=== PATIENT | female | born 1970 | race Caucasian/White ===

== ENCOUNTER → 2016-07-18 | Outpatient (CLI) | payer OTHER ==
--- NOTE | 2016-07-18 09:21 | MM ---
Reason for exam: additional evaluation requested from prior study. Last mammogram was performed 1 year and 1 month ago. History: Patient is nulliparous. Family history of breast cancer in mother at age 68. Taking hormonal contraceptives for 23 years beginning at age 21. Physical Findings: Nurse did not find any significant physical abnormalities on exam. MG 3D Diag Mammo W/Cad TESSA Bilateral CC and MLO view(s) were taken. LM and spot compression CC view(s) were taken of the right breast. Prior study comparison: June 08, 2015, bilateral MG 3d screening mammo w/cad. There are scattered fibroglandular densities. Asymmetric breast tissue upper central right breast improved after spot compression. These results were verbally communicated with the patient and result sheet given to the patient on 07/18/16. ASSESSMENT: Incomplete: need additional imaging evaluation, BI-RAD 0 RECOMMENDATION: Ultrasound of the left breast.
--- NOTE | 2016-07-18 09:28 | USB ---
Reason for exam: additional evaluation requested from abnormal screening. History: Patient is nulliparous. Family history of breast cancer in mother at age 68. Taking hormonal contraceptives for 23 years beginning at age 21. US Breast LT Left breast ultrasound including all four quadrants, the retroareolar region and axilla demonstrates a 0.7 x 0.4 x 0.8cm oval, cystic lesion at 6 o'clock, seen on previous and a 0.6 x 0.3 x 0.6cm oval, cystic lesion at 9 o'clock, seen on previous. These results were verbally communicated with the patient and result sheet given to the patient on 07/18/16. ASSESSMENT: Benign, BI-RAD 2 RECOMMENDATION: Follow-up diagnostic mammogram of both breasts in 6 months. (back on schedule left breast, 6 month follow up right breast)
== END | disposition home or self-care (01) ==
LOC: RADMAMWWP 07:17
PROVIDERS: ATTEND Obstetrics & Gynecology
DX: R92.8 Other abnormal and inconclusive findings on diagnostic imaging of breast (principal)
CPT/HCPCS: 76641; G0204; G0279

== ENCOUNTER → 2017-01-08 | Outpatient (CLI) | payer OTHER ==
--- NOTE | 2017-01-08 08:03 | US ---
EXAMINATION TYPE: US abdomen complete DATE OF EXAM: 01/08/2017 COMPARISON: NONE CLINICAL HISTORY: K21.9 Gerd R10.9 Abdominal Pain. GERD, epigastric pain, vomiting EXAM MEASUREMENTS: Liver Length: 15.4 cm Gallbladder Wall: 0.3 cm CBD: 0.3 cm Spleen: 10.1 cm Right Kidney: 10.2 x 4.1 x 4.4 cm Left Kidney: 10.7 x 5.2 x 4.8 cm *Technical limitations due to large amount of overlying bowel Pancreas: visualized portions appear wnl, tail obscured by overlying bowel content Liver: visualized portions appear wnl Gallbladder: Large shadowing gallstone is seen within the gallbladder fundus measuring 2.3cm Evidence for sonographic Palomares's sign: Yes CBD: appears wnl Spleen: appears wnl Right Kidney: no evidence of hydronephrosis or mass Left Kidney: no evidence of hydronephrosis or mass Upper IVC: wnl Abd Aorta: wnl The liver is homogenous. The intrahepatic portion of the IVC and proximal abdominal aorta are within normal limits. There is no evidence of cholelithiasis. Common bile duct is unremarkable. The visu alized portions of the pancreas are homogenous. The spleen is unremarkable. Kidneys are symmetric a nd free of hydronephrosis. No renal lesions are seen. IMPRESSION: Cholelithiasis without other sonographic evidence of cholecystitis. The superintendent pier notes a positive sonographic Palomares sign and therefore consideration should be given to HIDA scan with CCK to further evaluate for acute/chronic cholecystitis and/or biliary dyskinesia.
== END | disposition home or self-care (01) ==
LOC: RADUSWWP 06:56
PROVIDERS: ATTEND Family Medicine
DX: K80.20 Calculus of gallbladder without cholecystitis without obstruction (principal); K21.9 Gastro-esophageal reflux disease without esophagitis
CPT/HCPCS: 76700

== ENCOUNTER → 2017-01-19 | Outpatient (CLI) | payer OTHER ==
--- NOTE | 2017-01-19 09:02 | MM ---
Reason for exam: follow-up at short interval from prior study. Last mammogram was performed 6 months ago. History: Patient is nulliparous. Family history of breast cancer in mother at age 68. Taking hormonal contraceptives beginning at age 21. Physical Findings: Nurse did not find any significant physical abnormalities on exam. MG 3D Diag Mammo W/Cad TESSA Bilateral CC and MLO view(s) were taken. Prior study comparison: July 18, 2016, bilateral MG 3d diag mammo w/cad TESSA. June 16, 2015, left breast US breast workup limited LT. June 08, 2015, bilateral MG 3d screening mammo w/cad. There are scattered fibroglandular densities. Mammographically stable previously sonographically proven left cyst at 6 o'clock. Right asymmetry no longer seen, appears as fibroglandular tissue. These results were verbally communicated with the patient and result sheet given to the patient on 01/19/17. ASSESSMENT: Benign, BI-RAD 2 RECOMMENDATION: Routine screening mammogram of both breasts in 1 year.
== END | disposition home or self-care (01) ==
LOC: RADMAMWWP 07:32
PROVIDERS: ATTEND Obstetrics & Gynecology
DX: R92.8 Other abnormal and inconclusive findings on diagnostic imaging of breast (principal)
CPT/HCPCS: G0204; G0279

== ENCOUNTER → 2017-01-24 | Outpatient (CLI) | payer OTHER ==
--- NOTE | 2017-01-24 12:43 | XR ---
EXAMINATION TYPE: XR finger RT DATE OF EXAM: 01/24/2017 COMPARISON: NONE HISTORY: Right fourth digit pain after lifting injury 3 weeks ago. TECHNIQUE: 3 views of right fourth digit are acquired. FINDINGS: No acute fracture or dislocation is evident. The joint spaces are preserved. Overlying soft tissue is unremarkable. IMPRESSION: No acute fracture or dislocation in fourth digit of right hand is present.
== END | disposition home or self-care (01) ==
LOC: RADXRMAIN 12:02
PROVIDERS: ATTEND Family Medicine
DX: M79.644 Pain in right finger(s) (principal)

== ENCOUNTER → 2017-01-31 | Outpatient (CLI) | payer OTHER ==
--- NOTE | 2017-01-31 10:10 | NM ---
EXAMINATION TYPE: NM hepatobiliary w EF DATE OF EXAM: 01/31/2017 COMPARISON: NONE HISTORY: Gastroesophageal reflux disease, abdominal pain TECHNIQUE: After the intravenous administration of 5.44 mCi Tc 99m Mebrofenin hepatobiliary scintigra phy is performed. Immediate images post injection. FINDINGS: There is satisfactory initial accumulation of tracer by the liver. The gallbladder is visualized wit hin 22 minutes. The small bowel activity is noted within 16 minutes. At one hour 8 ounces of oral e nsure plus is given to mimic CCK and gallbladder ejection fraction is calculated at 56 %, in the norm al range. Therefore there is no scintigraphic evidence of cystic or common bile duct obstruction to suggest acute cholecystitis or gallbladder dyskinesia. IMPRESSION: Exam is within normal limits.
== END | disposition home or self-care (01) ==
LOC: RADNMMAIN 06:52
PROVIDERS: ATTEND Family Medicine
DX: K21.9 Gastro-esophageal reflux disease without esophagitis (principal)
CPT/HCPCS: 78226; A9537

== ENCOUNTER 2018-04-14 17:29 | Emergency (ER) | payer OTHER ==
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
[2018-04-14 18:57] LABS: Basophils % (A) 0 %; Eosinophils # (A) 0.1 k/uL (0-0.7); Eosinophils % (A) 1 %; HCT 41.8 % (34.0-46.0); HGB 13.3 gm/dL (11.4-16.0); Lymphocytes # (A) 1.6 k/uL (1.0-4.8); Lymphocytes % (A) 13 %; MCH 29.9 pg (25.0-35.0); MCHC 31.9 g/dL (31.0-37.0); MCV 93.8 fL (80.0-100.0); Mean Platelet Volume 6.9; Monocytes # (A) 0.6 k/uL (0-1.0); Monocytes % (A) 5 %; Neutrophils # (A) 9.3 k/uL (1.3-7.7); Neutrophils % (A) 79 %; Platelet Count 386 k/uL (150-450); RBC 4.46 m/uL (3.80-5.40); RDW 12.8 % (11.5-15.5); WBC 11.8 k/uL (3.8-10.6)
[2018-04-14 19:06] LABS: Creatine Kinase 78 U/L (30-135)
[2018-04-14 19:09] LABS: ALT 21 U/L (9-52); AST 21 U/L (14-36); Albumin 3.9 g/dL (3.5-5.0); Alcohol <10 mg/dL; Alkaline Phosphatase 70 U/L (38-126); Anion Gap 10 mmol/L; Blood Urea Nitrogen 17 mg/dL (7-17); Calcium 9.4 mg/dL (8.4-10.2); Carbon Dioxide 22 mmol/L (22-30); Chloride 109 mmol/L (98-107); Glucose 119 mg/dL (74-99); Potassium 4.5 mmol/L (3.5-5.1); Sodium 141 mmol/L (137-145); Total Bilirubin 0.3 mg/dL (0.2-1.3); Total Protein 6.9 g/dL (6.3-8.2)
[2018-04-14 19:18] LABS: Creatine Kinase MB 0.8 ng/mL (0.0-2.4); Troponin I <0.012 ng/mL (0.000-0.034)
[2018-04-14 19:19] LABS: Prothrombin Time 9.5 sec (9.0-12.0)
[2018-04-14 19:28] LABS: Partial Thromboplastin Time 18.5 sec (22.0-30.0)
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
[2018-04-14 19:53] VITALS: BP 140/88; PULSE 90; RESP 18; TEMP 98.4
--- NOTE | 2018-04-19 00:29 | CDI ---
Documentation Clarification OP Dear Shashank Mari, DO Please do addendum to ED report for complete Physical Exam. Thank you, Caron Braun Paper Control Clerk If you have any questions, please contact Integration Project Manager at [phone] [facility]
== END 2018-04-14 19:52 | disposition home or self-care (01) ==
LOC: EC 17:29
DX: M54.5 Low back pain (principal); M25.561 Pain in right knee; J45.909 Unspecified asthma, uncomplicated; K21.9 Gastro-esophageal reflux disease without esophagitis; E78.5 Hyperlipidemia, unspecified; Z98.890 Other specified postprocedural states; Z79.899 Other long term (current) drug therapy; Z88.2 Allergy status to sulfonamides; V43.62XA Car passenger injured in collision with other type car in traffic accident, initial encounter; Y92.89 Other specified places as the place of occurrence of the external cause
CPT/HCPCS: 36415; 93005; 80053; 82550; 82553; 84484; 85025; 85610; 85730; 80320; 73562; 72125; 70450; 71260; 74177; 99285; Q9967

== ENCOUNTER → 2019-03-21 | Outpatient (CLI) | payer OTHER ==
--- NOTE | 2019-03-24 10:06 | MM ---
Reason for exam: screening (asymptomatic). Last mammogram was performed 2 years and 2 months ago. History: Patient is nulliparous. Family history of breast cancer in mother at age 68. Taking hormonal contraceptives beginning at age 21. Physical Findings: A clinical breast exam by your physician is recommended on an annual basis and results should be correlated with mammographic findings. MG 3D Screening Mammo W/Cad Bilateral CC and MLO view(s) were taken. Prior study comparison: January 19, 2017, bilateral MG 3d diag mammo w/cad TESSA. July 18, 2016, bilateral MG 3d diag mammo w/cad TESSA. There are scattered fibroglandular densities. There is chronic nodularity bilaterally. No significant changes when compared with prior studies. ASSESSMENT: Benign, BI-RAD 2 RECOMMENDATION: Routine screening mammogram of both breasts in 1 year.
== END | disposition home or self-care (01) ==
LOC: RADMAMWWP 13:03
PROVIDERS: ATTEND Obstetrics & Gynecology
DX: Z12.31 Encounter for screening mammogram for malignant neoplasm of breast (principal)
CPT/HCPCS: 77063; 77067

== ENCOUNTER → 2021-02-15 | Outpatient (CLI) | payer OTHER ==
--- NOTE | 2021-02-15 12:07 | MM ---
Reason for exam: screening (asymptomatic). Last mammogram was performed 1 year and 11 months ago. History: Patient is nulliparous. Family history of breast cancer in mother at age 68. Taking hormonal contraceptives beginning at age 21. Physical Findings: A clinical breast exam by your physician is recommended on an annual basis and results should be correlated with mammographic findings. MG 3D Screening Mammo W/Cad Bilateral CC and MLO view(s) were taken. Prior study comparison: March 21, 2019, bilateral MG 3d screening mammo w/cad. July 18, 2016, bilateral MG 3d diag mammo w/cad TESSA. There are scattered fibroglandular densities. There is chronic nodularity in the left breast. There is no discrete abnormality. ASSESSMENT: Benign, BI-RAD 2 RECOMMENDATION: Routine screening mammogram of both breasts in 1 year.
== END | disposition home or self-care (01) ==
LOC: RADMAMWWP 07:06
PROVIDERS: ATTEND Obstetrics & Gynecology
DX: Z12.31 Encounter for screening mammogram for malignant neoplasm of breast (principal); Z80.3 Family history of malignant neoplasm of breast
CPT/HCPCS: 77063; 77067

== ENCOUNTER 2021-04-04 19:52 | Observation (INO) | payer OTHER ==
[2021-04-04 20:50] LABS: Basophils % (A) 0 %; Eosinophils # (A) 0.1 k/uL (0-0.7); Eosinophils % (A) 1 %; HCT 46.3 % (34.0-46.0); HGB 15.3 gm/dL (11.4-16.0); Lymphocytes # (A) 1.9 k/uL (1.0-4.8); Lymphocytes % (A) 13 %; MCH 30.4 pg (25.0-35.0); MCV 92.1 fL (80.0-100.0); Mean Platelet Volume 7.3; Monocytes # (A) 0.5 k/uL (0-1.0); Monocytes % (A) 4 %; Neutrophils # (A) 11.8 k/uL (1.3-7.7); Neutrophils % (A) 81 %; Platelet Count 448 k/uL (150-450); RBC 5.03 m/uL (3.80-5.40); RDW 12.5 % (11.5-15.5); WBC 14.4 k/uL (3.8-10.6)
[2021-04-04 21:22] LABS: ALT 13 U/L (4-34); AST 24 U/L (14-36); African American GFR (CKD) >90 (>60 ml/min/1.73 sqM); Albumin 4.6 g/dL (3.5-5.0); Alkaline Phosphatase 113 U/L (38-126); Anion Gap 11 mmol/L; Blood Urea Nitrogen 10 mg/dL (7-17); Calcium 10.1 mg/dL (8.4-10.2); Carbon Dioxide 23 mmol/L (22-30); Chloride 102 mmol/L (98-107); Glucose 108 mg/dL (74-99); Non-African American GFR(CKD) >90 (>60 ml/min/1.73 sqM); Potassium 4.3 mmol/L (3.5-5.1); Sodium 136 mmol/L (137-145); Total Bilirubin 0.7 mg/dL (0.2-1.3); Total Protein 8.2 g/dL (6.3-8.2)
[2021-04-05] MEDS ORDERED: HYDROmorphone 0.5 MG/0.5 ML SYRINGE IVP STA ×2 (01:11→03:35)
[2021-04-05] MEDS ORDERED: ONDANSETRON 4 MG/2 ML VIAL IVP STA (01:11)
[2021-04-05 02:20] LABS: Appearance,Urine Cloudy (Clear); Bacteria,Urine Many /hpf; Bilirubin,Urine Negative (Negative); Blood,Urine Small (Negative); Color,Urine Yellow; Glucose,Urine (UA) Negative (Negative); Ketones,Urine 4+ (Negative); Leukocyte Esterase,Urine Moderate (Negative); Mucus,Urine Many /hpf; Nitrite,Urine Negative (Negative); PH, Urine 5.5 (5.0-8.0); Protein,Urine 1+ (Negative); RBC,Urine 6 /hpf (0-5); Specific Gravity,Urine 1.028 (1.001-1.035); Squamous Epithelial Cell,Urine 7 /hpf (0-4); WBC,Urine 15 /hpf (0-5)
[2021-04-05 02:22] LABS: Amylase 67 U/L (30-110); Lipase 67 U/L (23-300)
--- NOTE | 2021-04-05 02:27 | US ---
EXAMINATION TYPE: US gallbladder DATE OF EXAM: 04/05/2021 COMPARISON: US, CT CLINICAL HISTORY: pain. Abdominal pain. Hx gallstone. EXAM MEASUREMENTS: Liver Length: 15.6 cm Gallbladder Wall: 0.39 cm CBD: 0.76 cm Right Kidney: 11.4 x 4.9 x 4.8 cm Limited due to patient body habitus and overlying bowel gas. Pancreas: Tail not well seen due to gas. Liver: Limited. Appears coarse and to have an increased echogenicity. Gallbladder: Appears to be distended at 12.0 cm in length with internal echoes. Hyperechoic area in neck: 2.3 x 2.1 x 2.9 cm. Wall appears thickened measuring 0.39 cm. Evidence for sonographic Palomares's sign: Yes CBD: Appears dilated. Right Kidney: No hydronephrosis or masses seen IMPRESSION: Increased echogenicity throughout the gallbladder. There is large gallstones at the gallbladder neck. Echogenic bile could relate to gallbladder sludge. Gallbladder mass cannot be excluded. Fatty infiltration of the liver. No dilation seen of the intrahepatic bile ducts.
--- NOTE | 2021-04-05 02:50 | ED ---
General Adult HPI - General Chief complaint: Abdominal Pain Stated complaint: Abd Pain,Fever Time Seen by Provider: 04/05/21 00:19 Source: patient Mode of arrival: ambulatory Limitations: no limitations - History of Present Illness Initial comments: 50-year-old female with a past medical history of asthma, GERD, hyperlipidemia, cholelithiasis presents to the emergency room for upper abdominal pain. This is been ongoing 2 or 3 days now. Patient states it started as a dull pain but gradually worsened. Patient states she has not been able to eat or drink anything because the pain worsens with eating and drinking. Patient is also nauseous and does not have an appetite. No fevers at home. Patient states she was told she has gallstones in the past.Patient has no other complaints at this time including shortness of breath, chest pain, nausea or vomiting, headache, or visual changes. - Related Data Home Medications Medication Instructions Recorded Confirmed [id number] 1 tab PO Q8H PRN 04/14/18 04/14/18 [Excedrin] Flovent (Unknown) 1 inhalation PO DIRECTED PRN 04/14/18 04/14/18 Montelukast [Singulair] 10 mg PO DAILY 04/14/18 04/14/18 Simvastatin [Zocor] 40 mg PO HS 04/14/18 04/14/18 Allergies Allergy/AdvReac Type Severity Reaction Status Date / Time Sulfa (Sulfonamide AdvReac Rash/Hives Verified 04/04/21 20:35 Antibiotics) Review of Systems ROS Statement: Those systems with pertinent positive or pertinent negative responses have been documented in the HPI. ROS Other: All systems not noted in ROS Statement are negative. Past Medical History Past Medical History: Asthma, GERD/Reflux, Hyperlipidemia Additional Past Medical History / Comment(s): gallstones History of Any Multi-Drug Resistant Organisms: None Reported Additional Past Surgical History / Comment(s): sinus surgeries Past Psychological History: No Psychological Hx Reported Smoking Status: Never smoker Past Alcohol Use History: Occasional Past Drug Use History: None Reported General Exam Limitations: no limitations General appearance: alert, in no apparent distress Head exam: Present: atraumatic Eye exam: Present: normal appearance, PERRL, EOMI. Absent: scleral icterus, conjunctival injection ENT exam: Present: normal exam, mucous membranes moist Neck exam: Present: normal inspection, full ROM. Absent: tenderness Respiratory exam: Present: normal lung sounds bilaterally. Absent: respiratory distress, wheezes Cardiovascular Exam: Present: regular rate, normal rhythm, normal heart sounds GI/Abdominal exam: Present: soft, tenderness (Mild upper abdominal tenderness. No lower abdominal tenderness. No tenderness at McBurney's point), normal bowel sounds. Absent: distended Neurological exam: Present: alert Course Vital Signs 04/04/21 20:31 Temperature 98.1 F Pulse Rate 69 Respiratory 18 Rate Blood Pressure 162/100 O2 Sat by Pulse 100 Oximetry EKG Findings - EKG Comments: EKG Findings:: These bradycardia, ventricular rate 56, DC interval 130, QTC 422 Medical Decision Making - Medical Decision Making Vitals are stable. HPI and physical exam as documented. CBC does show leukocytosis. CMP unremarkable. Urinalysis shows 4+ ketones. A gallbladder ultrasound does show gallstones in the gallbladder neck as well as a thickened wall, cannot exclude gallbladder mass. Possibly slightly dilated common bile duct however no transaminitis. Discussed this case with Dr. Cardenas. He does accept the admission. Patient was started on Unasyn and will be kept nothing by mouth. - Lab Data Result diagrams: 04/04/21 20:37 04/04/21 20:37 Lab Results 04/04/21 04/04/21 04/05/21 Range/Units 20:37 20:37 01:35 WBC 14.4 H (3.8-10.6) k/uL RBC 5.03 (3.80-5.40) m/uL Hgb 15.3 (11.4-16.0) gm/dL Hct 46.3 H (34.0-46.0) % MCV 92.1 (80.0-100.0) fL MCH 30.4 (25.0-35.0) pg MCHC 33.0 (31.0-37.0) g/dL RDW 12.5 (11.5-15.5) % Plt Count 448 (150-450) k/uL MPV 7.3 Neutrophils % 81 % Lymphocytes % 13 % Monocytes % 4 % Eosinophils % 1 % Basophils % 0 % Neutrophils # 11.8 H (1.3-7.7) k/uL Lymphocytes # 1.9 (1.0-4.8) k/uL Monocytes # 0.5 (0-1.0) k/uL Eosinophils # 0.1 (0-0.7) k/uL Basophils # 0.0 (0-0.2) k/uL Sodium 136 L (137-145) mmol/L Potassium 4.3 (3.5-5.1) mmol/L Chloride 102 (98-107) mmol/L Carbon Dioxide 23 (22-30) mmol/L Anion Gap 11 mmol/L BUN 10 (7-17) mg/dL Creatinine 0.72 (0.52-1.04) mg/dL Est GFR (CKD-EPI)AfAm >90 (>60 ml/min/1.73 sqM) Est GFR (CKD-EPI)NonAf >90 (>60 ml/min/1.73 sqM) Glucose 108 H (74-99) mg/dL Calcium 10.1 (8.4-10.2) mg/dL Total Bilirubin 0.7 (0.2-1.3) mg/dL AST 24 (14-36) U/L ALT 13 (4-34) U/L Alkaline Phosphatase 113 (38-126) U/L Troponin I (0.000-0.034) ng/mL Total Protein 8.2 (6.3-8.2) g/dL Albumin 4.6 (3.5-5.0) g/dL Amylase 67 (30-110) U/L Lipase 67 (23-300) U/L Urine Color Urine Appearance (Clear) Urine pH (5.0-8.0) Ur Specific [place] (1.001-1.035) Urine Protein (Negative) Urine Glucose (UA) (Negative) Urine Ketones (Negative) Urine Blood (Negative) Urine Nitrite (Negative) Urine Bilirubin (Negative) Urine Urobilinogen (<2.0) mg/dL Ur Leukocyte Esterase (Negative) Urine RBC (0-5) /hpf Urine WBC (0-5) /hpf Ur Squamous Epith Cells (0-4) /hpf Urine Bacteria (None) /hpf Urine Mucus (None) /hpf 04/05/21 04/05/21 Range/Units 01:35 01:39 WBC (3.8-10.6) k/uL RBC (3.80-5.40) m/uL Hgb (11.4-16.0) gm/dL Hct (34.0-46.0) % MCV (80.0-100.0) fL MCH (25.0-35.0) pg MCHC (31.0-37.0) g/dL RDW (11.5-15.5) % Plt Count (150-450) k/uL MPV Neutrophils % % Lymphocytes % % Monocytes % % Eosinophils % % Basophils % % Neutrophils # (1.3-7.7) k/uL Lymphocytes # (1.0-4.8) k/uL Monocytes # (0-1.0) k/uL Eosinophils # (0-0.7) k/uL Basophils # (0-0.2) k/uL Sodium (137-145) mmol/L Potassium (3.5-5.1) mmol/L Chloride (98-107) mmol/L Carbon Dioxide (22-30) mmol/L Anion Gap mmol/L BUN (7-17) mg/dL Creatinine (0.52-1.04) mg/dL Est GFR (CKD-EPI)AfAm (>60 ml/min/1.73 sqM) Est GFR (CKD-EPI)NonAf (>60 ml/min/1.73 sqM) Glucose (74-99) mg/dL Calcium (8.4-10.2) mg/dL Total Bilirubin (0.2-1.3) mg/dL AST (14-36) U/L ALT (4-34) U/L Alkaline Phosphatase (38-126) U/L Troponin I <0.012 (0.000-0.034) ng/mL Total Protein (6.3-8.2) g/dL Albumin (3.5-5.0) g/dL Amylase (30-110) U/L Lipase (23-300) U/L Urine Color Yellow Urine Appearance Cloudy H (Clear) Urine pH 5.5 (5.0-8.0) Ur Specific [place] 1.028 (1.001-1.035) Urine Protein 1+ H (Negative) Urine Glucose (UA) Negative (Negative) Urine Ketones 4+ H (Negative) Urine Blood Small H (Negative) Urine Nitrite Negative (Negative) Urine Bilirubin Negative (Negative) Urine Urobilinogen 2.0 (<2.0) mg/dL Ur Leukocyte Esterase Moderate H (Negative) Urine RBC 6 H (0-5) /hpf Urine WBC 15 H (0-5) /hpf Ur Squamous Epith Cells 7 H (0-4) /hpf Urine Bacteria Many H (None) /hpf Urine Mucus Many H (None) /hpf Disposition Clinical Impression: Cholelithiases, Cholecystitis, Leukocytosis Disposition: ADMITTED IP TO THIS HOSP Is patient prescribed a controlled substance at d/c from ED?: No Referrals: Jeovany Viera DO [Primary Care Provider] - 1-2 days Time of Disposition: 03:40
[2021-04-05] MEDS ORDERED: NALOXONE 0.4 MG/ML 1 ML VIAL IV PRN (03:37)
[2021-04-05] MEDS ORDERED: AMPICILLIN-SULBACTAM 3 GM in SODIUM CHLORIDE 0.9% 100 ML IVPB STA (03:37)
[2021-04-05] MEDS ORDERED: ONDANSETRON 4 MG/2 ML VIAL IVP PRN (03:37)
[2021-04-05] MEDS: SODIUM CHLORIDE 0.9% 1,000 ML IV SCH ×3 (04:55→19:39)
[2021-04-05] MEDS: HYDROmorphone 0.5 MG/0.5 ML SYRINGE IVP PRN ×5 (07:05→20:24)
[2021-04-05] MEDS ORDERED: HYDROmorphone 1 MG/ML 1 ML SYRINGE IVP PRN ×2 (09:39→17:48)
--- NOTE | 2021-04-05 10:22 | P.GSHP ---
History of Present Illness H&P Date: 04/05/21 CHIEF COMPLAINT: Abdominal pain HISTORY OF PRESENT ILLNESS: This is a 50-year-old female with a known history of cholelithiasis. Patient presents to the hospital with complaints of epigastric pain that radiates to her back and left shoulder with nausea and vomiting 4 days. She does report that pain is worse after eating. She has been having low-grade fevers. She had similar symptoms a few months ago that only last for an hour and resolve on their own. She reports that her pain was very severe and was continuous. Patient admitted to the hospital with acute cholecystitis and cholelithiasis. PAST MEDICAL HISTORY: Asthma, cholelithiasis, GERD, hyperlipidemia PAST SURGICAL HISTORY: None MEDICATIONS: See list. ALLERGIES: See list. SOCIAL HISTORY: No illicit drug use. REVIEW OF SYSTEMS: CONSTITUTIONAL: Denies fever or chills. HEENT: Denies blurred vision, vision changes, or eye pain. Denies hemoptysis CARDIOVASCULAR: Denies chest pain or pressure. RESPIRATORY: No shortness of breath. GASTROINTESTINAL: See HPI for pertinent findings HEMATOLOGIC: Denies bleeding disorders. GENITOURINARY: Denies any blood in urine or increased urinary frequency. SKIN: Denies pruitis. Denies rash. PHYSICAL EXAM: VITAL SIGNS: Reviewed GENERAL: Well-developed in no acute distress. HEENT: No sclera icterus. Extraocular movements grossly intact. Moist buccal mucosa. Head is atraumatic, normocephalic. No nasal drainage. ABDOMEN: Soft. Nondistended. Epigastric tenderness NEUROLOGIC: Alert and oriented. Cranial nerves II through XII grossly intact. LABORATORY DATA: WBC 14.4 hemoglobin 15.3 platelets 448 Sodium 136 potassium 4.3 BUN 10 creatinine 0.72 Lactic acid 1.2 LFTs normal Lipase normal Urine hCG not detected COVID-19 not detected IMAGING: Gallbladder ultrasound shows increased echogenicity throughout the gallbladder. There is large and gallstones at the gallbladder neck. Echogenic bile could relate to gallbladder sludge. Gallbladder mass cannot be excluded. Fatty infiltration of the liver. No dilation seen of the intrahepatic bile ducts. ASSESSMENT: 1. Acute cholecystitis 2. Symptomatic cholelithiasis PLAN: -Patient scheduled for laparoscopic cholecystectomy today with Dr. Cardenas -Keep patient nothing by mouth -Continue IV fluids -Adjust IV pain medication to Dilaudid 1 mg IV every 3 hours as needed for pain -Continue IV antibiotics -Continue antiemetics as needed Physician Dock Attendant note has been reviewed by physician. Signing provider agrees with the documented findings, assessment, and plan of care. Past Medical History Past Medical History: Asthma, GERD/Reflux, Hyperlipidemia Additional Past Medical History / Comment(s): gallstones History of Any Multi-Drug Resistant Organisms: None Reported Additional Past Surgical History / Comment(s): sinus surgeries Past Psychological History: No Psychological Hx Reported Smoking Status: Never smoker Past Alcohol Use History: Occasional Past Drug Use History: None Reported Medications and Allergies Home Medications Medication Instructions Recorded Confirmed Type Montelukast [Singulair] 10 mg PO HS 04/14/18 04/05/21 History Amitriptyline HCl [Elavil] 20 mg PO HS PRN 04/05/21 04/05/21 History Atorvastatin Calcium [Lipitor] 80 mg PO QAM 04/05/21 04/05/21 History Esomeprazole Magnesium [NexIUM 20 mg PO DAILY 04/05/21 04/05/21 History 24Hr] Fluticasone Nasal [place] [Flonase 1 - 2 spray EA NOSTRIL DAILY PRN 04/05/21 04/05/21 History Nasal [place]] Levocetirizine Dihydrochloride 5 mg PO HS 04/05/21 04/05/21 History [Xyzal] Levono-E 1 tab PO DAILY 04/05/21 04/05/21 History Allergies Allergy/AdvReac Type Severity Reaction Status Date / Time Sulfa (Sulfonamide Allergy Rash/Hives Verified 04/05/21 07:05 Antibiotics) Surgical - Exam Vital Signs Temp Pulse Resp BP Pulse Ox 98.1 F 69 18 162/100 100 04/04/21 20:31 04/04/21 20:31 04/04/21 20:31 04/04/21 20:31 04/04/21 20:31 Results - Labs 04/04/21 20:37 04/04/21 20:37 Abnormal Lab Results - Last 24 Hours (Table) 04/04/21 04/04/21 04/05/21 Range/Units 20:37 20:37 01:39 WBC 14.4 H (3.8-10.6) k/uL Hct 46.3 H (34.0-46.0) % Neutrophils # 11.8 H (1.3-7.7) k/uL Sodium 136 L (137-145) mmol/L Glucose 108 H (74-99) mg/dL Urine Appearance Cloudy H (Clear) Urine Protein 1+ H (Negative) Urine Ketones 4+ H (Negative) Urine Blood Small H (Negative) Ur Leukocyte Esterase Moderate H (Negative) Urine RBC 6 H (0-5) /hpf Urine WBC 15 H (0-5) /hpf Ur Squamous Epith Cells 7 H (0-4) /hpf Urine Bacteria Many H (None) /hpf Urine Mucus Many H (None) /hpf Diabetes panel 04/04/21 Range/Units 20:37 Sodium 136 L (137-145) mmol/L Potassium 4.3 (3.5-5.1) mmol/L Chloride 102 (98-107) mmol/L Carbon Dioxide 23 (22-30) mmol/L BUN 10 (7-17) mg/dL Creatinine 0.72 (0.52-1.04) mg/dL Glucose 108 H (74-99) mg/dL Calcium 10.1 (8.4-10.2) mg/dL AST 24 (14-36) U/L ALT 13 (4-34) U/L Alkaline Phosphatase 113 (38-126) U/L Total Protein 8.2 (6.3-8.2) g/dL Albumin 4.6 (3.5-5.0) g/dL Calcium panel 04/04/21 Range/Units 20:37 Calcium 10.1 (8.4-10.2) mg/dL Albumin 4.6 (3.5-5.0) g/dL Pituitary panel 04/04/21 Range/Units 20:37 Sodium 136 L (137-145) mmol/L Potassium 4.3 (3.5-5.1) mmol/L Chloride 102 (98-107) mmol/L Carbon Dioxide 23 (22-30) mmol/L BUN 10 (7-17) mg/dL Creatinine 0.72 (0.52-1.04) mg/dL Glucose 108 H (74-99) mg/dL Calcium 10.1 (8.4-10.2) mg/dL Adrenal panel 04/04/21 Range/Units 20:37 Sodium 136 L (137-145) mmol/L Potassium 4.3 (3.5-5.1) mmol/L Chloride 102 (98-107) mmol/L Carbon Dioxide 23 (22-30) mmol/L BUN 10 (7-17) mg/dL Creatinine 0.72 (0.52-1.04) mg/dL Glucose 108 H (74-99) mg/dL Calcium 10.1 (8.4-10.2) mg/dL Total Bilirubin 0.7 (0.2-1.3) mg/dL AST 24 (14-36) U/L ALT 13 (4-34) U/L Alkaline Phosphatase 113 (38-126) U/L Total Protein 8.2 (6.3-8.2) g/dL Albumin 4.6 (3.5-5.0) g/dL
[2021-04-05] MEDS: AMPICILLIN-SULBACTAM 3 GM in SODIUM CHLORIDE 0.9% 100 ML IVPB SCH ×3 (11:20→23:05)
[2021-04-05] MEDS ORDERED: IV FLUID CONTINUATION 300 ML IV ONE (16:19)
[2021-04-05] MEDS ORDERED: DEXAMETHASONE SOD PHOSPHATE 4 MG/ML 1 ML VIAL IVP ONE (16:21)
[2021-04-05] MEDS ORDERED: SCOPOLAMINE 1.5MG/72HR PATCH TRANSDERM ONE (16:21)
[2021-04-05] MEDS ORDERED: ONDANSETRON 4 MG/2 ML VIAL IVP ONE (16:21)
[2021-04-05] MEDS ORDERED: HEPARIN SODIUM,PORCINE/PF 5,000 UNIT/0.5 ML SYRINGE SQ ONE (16:25)
[2021-04-05] MEDS ORDERED: ONDANSETRON 4 MG/2 ML VIAL ONE (16:25)
[2021-04-05] MEDS ORDERED: HEPARIN SODIUM,PORCINE 5,000 UNIT/ML 1 ML VIAL SQ ONE (16:28)
[2021-04-05] MEDS ORDERED: fentaNYL (PF) 50 MCG/ML 2 ML AMP IVP ONE (16:39)
[2021-04-05] MEDS ORDERED: PROPOFOL 10 MG/ML 20 ML VIAL IV ONE (16:47)
[2021-04-05] MEDS ORDERED: NEOSTIGMINE 1 MG/ML 10 ML VIAL ONE (16:47)
[2021-04-05] MEDS ORDERED: LIDOCAINE 1% INJ 10MG/ML (20 ML MDV) ONE (16:47)
[2021-04-05] MEDS ORDERED: MIDAZOLAM 2 MG/2 ML VIAL ONE (16:47)
[2021-04-05] MEDS ORDERED: SUCCINYLCHOLINE CHLORIDE 100 MG/5 ML SYR IV ONE (16:47)
[2021-04-05] MEDS ORDERED: PHENYLEPHRINE-0.9% NACL SYG 1,000 MCG/10 ML SYRINGE ONE (16:47)
[2021-04-05] MEDS ORDERED: GLYCOPYRROLATE 0.2 MG/ML 2 ML VIAL ONE (16:47)
[2021-04-05] MEDS ORDERED: ROCURONIUM 10 MG/ML (5 ML VIAL) IV ONE (16:47)
[2021-04-05] MEDS ORDERED: HYDROmorphone (PF) 1 MG/ML ONE (16:47)
[2021-04-05] MEDS ORDERED: fentaNYL (PF) 50 MCG/ML 2 ML AMP ONE (16:47)
[2021-04-05] MEDS ORDERED: BUPIVACAIN-EPI 0.25%-1:200,000 30 ML VIAL SQ ONE ×2 (16:59→17:11)
[2021-04-05] MEDS ORDERED: LACTATED RINGERS 1,000 ML IV ONE (17:21)
--- NOTE | 2021-04-05 17:48 | P.OP ---
Date of Procedure: 04/05/21 Preoperative Diagnosis: Cholecystitis Postoperative Diagnosis: Cholecystitis Procedure(s) Performed: Laparoscopic cholecystectomy Anesthesia: CALEB Surgeon: Richmond Cardenas Estimated Blood Loss (ml): 25 Pathology: other (Gallbladder) Condition: stable Disposition: PACU Operative Findings: Gallbladder necrosis Description of Procedure: The patient was placed on the operating table. The patient received a general endotracheal tube anesthesia. The patients abdomen was prepped and draped in the usual sterile fashion. Through an infraumbilical stab incision, the fascia of the anterior abdominal wall was grasped with a pair of Kochers and then the Veress needle was placed in the peritoneal cavity. Position of the Veress needle was confirmed with positive drop test. The abdomen was then insufflated. After adequate insufflation, the 10 mm trocar was placed in the peritoneal cavity. Following this the laparoscope was placed in the peritoneal cavity. The patient was placed in the head-up, right side up position and then a 5 mm trocar was placed in the right lateral and right subcostal position under direct visualization. A 8 mm trocar was placed in the epigastric position. There was patchy necrosis of the gallbladder. The gallbladder was hydropic. The gallbladder was aspirated prior to grasping it. The gallbladder was grasped in the fundus and infundibulum. Traction on the gallbladder was placed in the lateral and the cephalad positions. The triangle of Calot was visualized.. The cystic duct was bluntly dissected until the union of the cystic duct and common bile duct was seen. A critical view of saf ety was achieved. The cystic duct was then divided and sealed with the Harmonic scissors. A PDS Endoloop was then placed throughout the cystic duct stump. The cystic artery divided and sealed with the Harmonic scissors. The gallbladder was then removed from the liver bed using Harmonic scissors. The gallbladder was then extracted through the epigastric port site. Operative field was checke d for any bleeding spots and Harmonic scissors was used to coagulate the liver bed. The abdomen was irrigated. The trocars were removed. The skin was closed using interrupted 3-0 Vicryl suture. Dermabond dressing were applied. The patient tolerated the procedure well.
[2021-04-05] MEDS ORDERED: KETOROLAC 15 MG/ML 1 ML VIAL ONE (18:04)
[2021-04-05] MEDS ORDERED: HYDROmorphone 0.5 MG/0.5 ML SYRINGE IVP ONE (18:05)
[2021-04-05] MEDS ORDERED: KETOROLAC 15 MG/ML 1 ML VIAL IVP ONE (18:07)
[2021-04-05] MEDS: FAMOTIDINE 20 MG/2 ML VIAL IV SCH (19:38)
[2021-04-06] MEDS: HYDROmorphone 0.5 MG/0.5 ML SYRINGE IVP PRN ×2 (01:12→07:43)
[2021-04-06] MEDS: SODIUM CHLORIDE 0.9% 1,000 ML IV SCH ×2 (05:05→07:47)
[2021-04-06] MEDS: AMPICILLIN-SULBACTAM 3 GM in SODIUM CHLORIDE 0.9% 100 ML IVPB SCH ×2 (05:05→11:14)
[2021-04-06] MEDS: FAMOTIDINE 20 MG/2 ML VIAL IV SCH (07:43)
[2021-04-06] MEDS ORDERED: ENOXAPARIN 40 MG/0.4 ML SYRINGE SQ SCH (09:00)
[2021-04-06 09:23] LABS: ALT 18 U/L (4-34); African American GFR (CKD) >90 (>60 ml/min/1.73 sqM); Albumin 3.5 g/dL (3.5-5.0); Albumin/Globulin Ratio 1.1; Anion Gap 9 mmol/L; Blood Urea Nitrogen 12 mg/dL (7-17); Calcium 9.1 mg/dL (8.4-10.2); Carbon Dioxide 22 mmol/L (22-30); Chloride 105 mmol/L (98-107); Globulin 3.1 g/dL; Glucose 111 mg/dL (74-99); Non-African American GFR(CKD) >90 (>60 ml/min/1.73 sqM); Sodium 136 mmol/L (137-145); Total Bilirubin 0.9 mg/dL (0.2-1.3); Total Protein 6.6 g/dL (6.3-8.2)
[2021-04-06 09:25] LABS: AST 38 U/L (14-36); Alkaline Phosphatase 70 U/L (38-126); Potassium 4.4 mmol/L (3.5-5.1)
[2021-04-06] MEDS ORDERED: HYDROcodone/APAP 5-325MG 1 EACH TAB PO PRN (11:14)
[2021-04-06 14:06] VITALS: BP 117/68; PULSE 104; RESP 18; TEMP 98.1
[2021-04-06 14:16] LABS: HCT 39.8 % (37.2-46.3); HGB 12.8 g/dL (12.0-15.0); MCH 30.3 pg (27.0-32.0); MCHC 32.2 g/dL (32.0-37.0); MCV 94.3 fL (80.0-97.0); Mean Platelet Volume 10.3 fL (9.5-12.2); Platelet Count 376 X 10*3/uL (140-440); RBC 4.22 X 10*6/uL (4.10-5.20); RDW 13.2 % (11.5-14.5); WBC 12.04 X 10*3/uL (4.50-10.00)
--- NOTE | 2021-04-06 14:41 | P.DS ---
Providers Date of admission: 04/05/21 03:58 Expected date of discharge: 04/06/21 Attending physician: Richmond Cardenas Consults: 04/05/21 17:49 Consult Physician Routine Consulting Provider: Mansi Bush Consult Reason/Comments: Medical management Do you want consulting provider notified?: Yes [facility] Course: Discharge diagnosis 1. Acute cholecystitis with necrotic gallbladder status post laparoscopic cholecystectomy Hospital course This is a 50-year-old female with a known history of cholelithiasis. Patient presents to the hospital with complaints of epigastric pain that radiates to her back and left shoulder with nausea and vomiting 4 days. She does report that pain is worse after eating. She has been having low-grade fevers. She had similar symptoms a few months ago that only last for an hour and resolve on their own. Gallbladder ultrasound shows increased echogenicity throughout the gallbladder. There is large and gallstones at the gallbladder neck. Echogenic bile could relate to gallbladder sludge. Gallbladder mass cannot be excluded. Fatty infiltration of the liver. No dilation seen of the intrahepatic bile ducts. Patient is status post laparoscopic cholecystectomy for acute cholecystitis. Patient tolerated surgery well. Her pain is controlled. She is tolerating diet. She has been up and ambulating. She is afebrile. Patient discharged home with antibiotic. She is stable for discharge. Please refer to chart for any further details. Physician Supervising Chef note has been reviewed by physician. Signing provider agrees with the documented findings, assessment, and plan of care. Patient Condition at Discharge: Stable Plan - Discharge Summary New Discharge Prescriptions: New HYDROcodone/APAP 5-325MG [[place] 5-325] 1 tab PO Q6HR PRN 3 Days #12 tab PRN Reason: Pain Levofloxacin [Levaquin] 500 mg PO DAILY 10 Days #10 tab Continue Montelukast [Singulair] 10 mg PO HS Fluticasone Nasal [place] [Flonase Nasal [place]] 1 - 2 spray EA NOSTRIL DAILY PRN PRN Reason: Congestion Levono-E 1 tab PO DAILY Levocetirizine Dihydrochloride [Xyzal] 5 mg PO HS Atorvastatin Calcium [Lipitor] 80 mg PO QAM Amitriptyline HCl [Elavil] 20 mg PO HS PRN PRN Reason: Insomnia Esomeprazole Magnesium [NexIUM 24Hr] 20 mg PO DAILY Discharge Medication List Montelukast [Singulair] 10 mg PO HS 04/14/18 [History] Amitriptyline HCl [Elavil] 20 mg PO HS PRN 04/05/21 [History] Atorvastatin Calcium [Lipitor] 80 mg PO QAM 04/05/21 [History] Esomeprazole Magnesium [NexIUM 24Hr] 20 mg PO DAILY 04/05/21 [History] Fluticasone Nasal [place] [Flonase Nasal [place]] 1 - 2 spray EA NOSTRIL DAILY PRN 04/05/21 [History] Levocetirizine Dihydrochloride [Xyzal] 5 mg PO HS 04/05/21 [History] Levono-E 1 tab PO DAILY 04/05/21 [History] HYDROcodone/APAP 5-325MG [[place] 5-325] 1 tab PO Q6HR PRN 3 Days #12 tab 04/06/21 [Rx] Levofloxacin [Levaquin] 500 mg PO DAILY 10 Days #10 tab 04/06/21 [Rx] Follow up Appointment(s)/Referral(s): Jeovany Viera DO [Primary Care Provider] - 1-2 days Richmond Cardenas MD [STAFF PHYSICIAN] - 1 Week Activity/Diet/Wound Care/Special Instructions: No driving while taking [place] No lifting over 10 pounds You may shower. No soaking or tub baths for 2 weeks Very light activity until you are reevaluated at your follow up appointment with your surgeon Discharge Disposition: HOME SELF-CARE
--- NOTE | 2021-04-06 21:37 | CONS ---
CONSULTATION REASON FOR CONSULTATION: Advice regarding asthma and other multiple medical issues requested by Dr. Cardenas. HISTORY OF PRESENT ILLNESS: This 50-year-old woman with a past medical history of asthma, GERD, hyperlipidemia, history of gallstones, being followed by Dr. Jeovany Viera in the outpatient setting, underwent laparoscopic cholecystectomy by Dr. Cardenas for cholecystitis. The patient tolerated the procedure well. There is no history of any fever, rigors or chills. No history of headache, loss of consciousness, seizures at this time. PAST MEDICAL HISTORY: History of asthma, GERD, hyperlipidemia, gallstones. HOME MEDICATIONS: Flonase nasal spray, Singular, Xyzal, Lipitor, Elavil, Levaquin. ALLERGIES: SULFA. FAMILY HISTORY: No history of heart disease or strokes in the family. SOCIAL HISTORY: No history of smoking. Occasional alcohol intake. REVIEW OF SYSTEMS: ENT: No diminished hearing. No diminished vision. CARDIOVASCULAR SYSTEM: No angina, palpitations. RESPIRATORY SYSTEM: As mentioned earlier. GI: As mentioned earlier. : No dysuria, retention. NERVOUS SYSTEM: No numbness, weakness. ALLERGY/IMMUNOLOGY: As mentioned earlier. HEMATOLOGY/ONCOLOGY: No history of anemia. ENDOCRINE: No history of diabetes or hypothyroidism. CONSTITUTIONAL: As mentioned earlier. DERMATOLOGY: Negative. RHEUMATOLOGY: Negative. PSYCHIATRY: As mentioned earlier. PHYSICAL EXAMINATION: Patient is alert and oriented x3. Pulse is 104, blood pressure 117/68, respiration 18, temperature 98.1, pulse ox 94% on room air. HEENT: Conjunctivae normal. Oral mucosa moist. NECK: No jugular venous distention. CARDIOVASCULAR: S1, S2 muffled. RESPIRATION: Breath sounds diminished at the bases. No rhonchi. No crackles. ABDOMEN: Soft. Status post surgery. Bowel sounds present. LEGS: No edema. No swelling. NERVOUS SYSTEM: Higher functions as mentioned earlier. Moves all 4 limbs. No focal motor or sensory deficit. LYMPHATICS: No lymph node palpable in neck, axillae or groin. SKIN: No ulcer, rash, bleeding. JOINTS: No active deforming arthropathy. LABS: WBC 12.5, hemoglobin 12.8, sodium 136, potassium 4.4. ASSESSMENT: 1. Status post laparoscopic cholecystectomy for acute cholecystitis. 2. History of cholelithiasis. 3. Increased white count, possibly reactive. 4. Mild hyponatremia. 5. History of asthma. 6. Gastroesophageal reflux disease. 7. Hyperlipidemia. 8. History of sinus surgeries. RECOMMENDATIONS AND DISCUSSION: In this 50-year-old woman who presented with multiple complex medical issues, I would recommend continue the current medications, continue the home medications. Incentive spirometry. DVT prophylaxis. Proton pump inhibitors. I would also recommend followup with Dr. Viera after discharge. We will follow the patient closely with you. Thank you, Dr. Cardenas, for letting us participate in the care of this patient. MMNORMANL / AUGUSTAN: [id number] / [id number]
== END 2021-04-06 15:17 | disposition home or self-care (01) ==
LOC: EC 19:52 → 6NMEDSUR 04-05 03:58
PROVIDERS: ADMIT Surgery; ATTEND Surgery
DX: K80.00 Calculus of gallbladder with acute cholecystitis without obstruction (principal); K82.A1 Gangrene of gallbladder in cholecystitis; K76.0 Fatty (change of) liver, not elsewhere classified; J45.909 Unspecified asthma, uncomplicated; K21.9 Gastro-esophageal reflux disease without esophagitis; E87.1 Hypo-osmolality and hyponatremia; E78.5 Hyperlipidemia, unspecified; Z20.822 Contact with and (suspected) exposure to COVID-19; Z79.899 Other long term (current) drug therapy; Z88.2 Allergy status to sulfonamides
CPT/HCPCS: 96376; 96361; 96365; 96375; 99285; 36415 ×2; 93005; 81025 ×2; 88304; 80053 ×2; 82150; 83605; 83690; 84484; 85025; 85027; 81001; 87040; 87086; 87635; 76705; 47562; G0378 ×2; J2250; J1644; J1100; J2710; J2405; J2001; J1650; J3010; J1170 ×3; J0295 ×2; J1885; J2370; J0330; J2704

== ENCOUNTER 2021-05-11 10:33 | Day surgery (SDC) | payer OTHER ==
[2021-05-10 08:57] VITALS: BMI 34.9
[~2021-05-11 10:33] MED LIST: LACTATED RINGERS 1,000 ML IV SCH; LIDOCAINE 1% (10MG/ML) FOR IV START INTRADERMA PRN
[2021-05-11 11:13] VITALS: RESP 16; TEMP 97.6
[2021-05-11] MEDS ORDERED: PROPOFOL 10 MG/ML 20 ML VIAL IV ONE (11:31)
--- NOTE | 2021-05-11 11:47 | P.PCN ---
Date of Procedure: 05/11/21 Procedure(s) Performed: BRIEF HISTORY: Patient is a 50-year-old pleasant white female scheduled for an elective colonoscopy as a part of screening for colon cancer and family history of colon cancer. Her mother and maternal aunt was diagnosed with colon cancer in his 60s and 70s respectively. PROCEDURE PERFORMED: Colonoscopy. PREOPERATIVE DIAGNOSIS: Screening for colon cancer and family history of colon cancer. IV sedation per Anesthesia. PROCEDURE: After informed consent was obtained, the patient, was brought into the endoscopy unit. IV sedation was administered by Anesthesia under continuous monitoring. Digital rectal examination was normal. Initially the Olympus CF-160 flexible video colonoscope was then inserted in the rectum, gradually advanced into the cecum without any difficulty. Careful examination was performed as the scope was gradually being withdrawn. Ileocecal valve and the appendiceal orifice were visualized and appeared normal. Prep was excellent. Mucosa of the cecum, ascending colon, transverse colon, descending colon, sigmoid colon, and rectum appeared normal. Retroflexion was performed in the rectum and no lesions were seen. The patient tolerated the procedure well. IMPRESSION: Normal-appearing colon from rectum to cecum with no evidence of colorectal neoplasia. RECOMMENDATIONS: Findings of this examination were discussed with the patient as well as a family. She was advised to have a repeat screening colonoscopy every 5 years because of the family history of colon cancer.
[2021-05-11 12:16] VITALS: BP 134/80; PULSE 97
== END 2021-05-11 12:23 | disposition home or self-care (01) ==
LOC: ORWHC2ENDO 10:33
PROVIDERS: ATTEND Internal Medicine Gastroenterology
DX: Z12.11 Encounter for screening for malignant neoplasm of colon (principal); K21.9 Gastro-esophageal reflux disease without esophagitis; E78.5 Hyperlipidemia, unspecified; J45.909 Unspecified asthma, uncomplicated; Z80.0 Family history of malignant neoplasm of digestive organs; Z79.899 Other long term (current) drug therapy; Z88.2 Allergy status to sulfonamides; Z90.49 Acquired absence of other specified parts of digestive tract
CPT/HCPCS: 81025; J2704; G0105

== ENCOUNTER → 2022-06-12 | Outpatient (CLI) | payer OTHER ==
--- NOTE | 2022-06-12 08:53 | US ---
EXAMINATION TYPE: US carotid duplex BILAT DATE OF EXAM: 06/12/2022 COMPARISON: NONE CLINICAL HISTORY: R42 Dizziness/giddiness, H81.13 Vertigo. vertigo dizzy TECHNIQUE: Carotid duplex ultrasound examination. Indirect Doppler criteria was utilized. FINDINGS: EXAM MEASUREMENTS: RIGHT: Peak Systolic Velocity (PSV) cm/sec ----- Right CCA: 114.2 ----- Right ICA: 110.3 ----- Right ECA: 94.4 ICA/CCA ratio: 1.0 RIGHT: End Diastole cm/sec ----- Right CCA: 24.1 ----- Right ICA: 27.5 ----- Right ECA: 13.6 LEFT: Peak Systolic Velocity (PSV) cm/sec ----- Left CCA: 84.5 ----- Left ICA: 108.1 ----- Left ECA: 85.4 ICA/CCA ratio: 1.3 LEFT: End Diastole cm/sec ----- Left CCA: 25.4 ----- Left ICA: 51.5 ----- Left ECA: 16 VERTEBRALS (direction of flow): Right Vertebral: Antegrade Left Vertebral: Antegrade Rhythm: Normal [employer] ASSOCIATE NOTES: No significant stenosis seen Minimal atherosclerotic plaque identified in both carotid bulbs. IMPRESSION: No clinically significant stenosis of the bilateral carotid arterial systems. Criteria for Assigning % of Stenosis / Diameter reduction (Estimation based on the indirect measurements of the internal carotid artery velocities (ICA PSV). 1. Normal (no stenosis)=ICA PSV < 125 cm/s: ratio < 2.0: ICA EDV<40 cm/s. 2. Less than 50% stenosis=ICA PSV < 125 cm/s: ratio < 2.0: ICA EDV<40 cm/s. 3. 50 to 69% stenosis=ICA PSV of 125 to 230 cm/s: ration 2.0 ? 4.0: ICA EDV 40-100 cm/s. 4. Greater than 70% stenosis to near occlusion= ICA PSV > 230 cm/s: ratio > 4.0: ICA EDV > 100 cm/s. 5. Near occlusion= ICA PSV velocities may be low or undetectable: variable ratio and ICA EDV. 6. Total occlusion=unable to detect flow.
--- NOTE | 2022-06-12 11:27 | CT ---
EXAMINATION TYPE: CT posterior fossa wo con DATE OF EXAM: 06/12/2022 COMPARISON: CT brain 04/14/2018 HISTORY: Benign paroxysmal vertigo, bilateral, dizziness and giddiness CT DLP: 150 mGycm Automated exposure control for dose reduction was used. Contrast: None Technique: Axial images 1 mm thick sections through the posterior fossa. Reconstructed images in the coronal plane were obtained. Study is performed without intravenous contrast. FINDINGS: Paranasal sinuses within the field of view are clear. Mastoid air cells are clear. Note is made of so me right septal deviation. Prior uncinectomies been performed. Ethmoidectomies been performed. External auditory canals and middle ears are clear. Incus and malleus have normal orientation. Semici rcular canals are normal. Cochlea are normal. Internal auditory canals appear normal without expansion or erosion. Cerebellar pontine angles appear clear. Portion of the cerebellum and brain within the field of view is normal as visualized. IMPRESSION: 1. NO SUSPICIOUS RADIOGRAPHIC ABNORMALITY TO ACCOUNT FOR PATIENT'S SYMPTOMS. CONSIDER MRI WITH CONTRA ST OF THE BRAIN FOR ADDITIONAL EVALUATION.
== END | disposition home or self-care (01) ==
LOC: RADCTMAIN 07:49
PROVIDERS: ATTEND Family Medicine
DX: H81.13 Benign paroxysmal vertigo, bilateral (principal)
CPT/HCPCS: 70480; 93880

== ENCOUNTER → 2023-04-06 | Outpatient (CLI) | payer OTHER ==
--- NOTE | 2023-04-06 08:41 | MM ---
Reason for Exam: Screening (asymptomatic). Last mammogram was performed 2 year(s) and 2 month(s) ago. Patient History: Menarche at age 13. Patient has no children. Currently using Hormonal Contraceptives, starting at age 21. Mother had breast cancer, age 68. Last menstrual period: 02/27/2023 Risk Values: Bianca 5 year model risk: 2.0%. NCI Lifetime model risk: 16.6%. Prior Study Comparison: 01/19/2017 Bilateral Diagnostic Mammogram, [facility]. 03/21/2019 Bilateral Screening Mammogram, [facility]. 02/15/2021 Bilateral Screening Mammogram, [facility]. Tissue Density: There are scattered fibroglandular densities. Findings: Analyzed By CAD. There is no suspicious group of microcalcifications within either breast. Benign calcifications within the left breast. No new suspicious mass within the left breast. Chronic nodularity within left breast. There are 2 ovoid equal density masses within the upper outer right breast measuring 7 mm anterior and middle depth. Overall Assessment: Incomplete: need additional imaging evaluation, BI-RAD 0 Management: Diagnostic Breast Ultrasound of the right breast. A clinical breast exam by your physician is recommended on an annual basis and results should be correlated with mammographic findings. [facility] will attempt to contact patient to return for supplemental views and ultrasound if indicated. Note on Bianca scores and lifetime risk: 1. A Bianca score greater than 3% is considered moderate risk. If this is the case, consider specialist referral to assess eligibility for a risk reducing agent. If overall lifetime risk for the development of breast cancer is 20% or higher, the patient may qualify for future screening with alternating mammogram and breast MRI. Electronically signed and approved by: Silvio Griffiths D.O.
== END | disposition home or self-care (01) ==
LOC: RADMAMWWP 07:12
PROVIDERS: ATTEND Obstetrics & Gynecology
DX: Z12.31 Encounter for screening mammogram for malignant neoplasm of breast (principal); Z80.3 Family history of malignant neoplasm of breast
CPT/HCPCS: 77063; 77067

== ENCOUNTER → 2023-04-13 | Outpatient (CLI) | payer OTHER ==
--- NOTE | 2023-04-13 08:20 | USB ---
Reason for Exam: Additional evaluation requested from abnormal screening. Patient History: Menarche at age 13. Patient has no children. Currently using Hormonal Contraceptives, starting at age 21. Mother had breast cancer, age 68. Risk Values: Bianca 5 year model risk: 2.0%. NCI Lifetime model risk: 16.6%. Technique: Method: Targeted. Prior Study Comparison: 03/21/2019 Bilateral Screening Mammogram, [facility]. 02/15/2021 Bilateral Screening Mammogram, [facility]. 04/06/2023 Bilateral MG 3D screening mammo w/cad, [facility]. Findings: The upper outer quadrant of the right breast, the axilla of the right breast and the retroareolar of the right breast were scanned. Technique utilized:US breast workup limited RT Image; Ultrasound imaging of: Area of concern, retroareolar region and axilla. 1. No evidence for organizing fluid collection or mass. 2. Anechoic cysts at 10:00 6 and questionable measuring 4 mm and 11:00 4 submitted images from the measuring 6 mm. Overall Assessment: Benign, BI-RAD 2 Management: Screening Mammogram of both breasts in 1 year. A clinical breast exam by your physician is recommended on an annual basis and results should be correlated with mammographic findings. This exam should not preclude additional follow-up of suspicious palpable abnormalities. Results were given to the patient verbally at the time of exam. Electronically signed and approved by: Kade Mclaughlin DO
== END | disposition home or self-care (01) ==
LOC: RADUSWWP 07:33
PROVIDERS: ATTEND Obstetrics & Gynecology
DX: R92.8 Other abnormal and inconclusive findings on diagnostic imaging of breast (principal); N60.01 Solitary cyst of right breast; Z80.3 Family history of malignant neoplasm of breast

== ENCOUNTER → 2023-06-01 | Outpatient (CLI) | payer OTHER ==
--- NOTE | 2023-06-01 11:44 | US ---
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 Not on blood thinners. SIDE PERFORMED: Right TECHNIQUE: The lower extremity deep venous system is examined utilizing real time linear array sonog mitali with graded compression, doppler sonography and color-flow sonography. VESSELS IMAGED: Common Femoral Vein Deep Femoral Vein Greater Saphenous Vein * Femoral Vein Popliteal Vein Small Saphenous Vein * Proximal Calf Veins (* superficial vessels) Right Leg: Negative for DVT, Positive for SVT at patients palpable area at upper lateral calf. IMPRESSION: 1. Left lower extremity ultrasound negative for deep venous thrombosis. 2. Note is made of thrombus within superficial calf veins correlating with the patient's area of conc susan
== END | disposition home or self-care (01) ==
LOC: RADUSWWP 10:38
PROVIDERS: ATTEND Family Medicine
DX: I80.11 Phlebitis and thrombophlebitis of right femoral vein (principal)

== ENCOUNTER → 2024-12-03 | Outpatient (CLI) | payer OTHER ==
--- NOTE | 2024-12-03 08:10 | MM ---
Reason for Exam: Screening (asymptomatic). Last mammogram was performed 1 year(s) and 8 month(s) ago. Patient History: Menarche at age 13. Patient has no children. Perimenopausal. Patient tested for BRCA1 outcome was negative. Patient tested for BRCA2 outcome was negative. Currently using Hormonal Contraceptives, starting at age 21. Mother had breast cancer, age 68. Risk Values: Bianca 5 year model risk: 2.2%. NCI Lifetime model risk: 16.1%. Prior Study Comparison: 01/19/2017 Bilateral Diagnostic Mammogram, [facility]. 03/21/2019 Bilateral Screening Mammogram, [facility]. 02/15/2021 Bilateral Screening Mammogram, [facility]. 04/06/2023 Bilateral MG 3D screening mammo w/cad, [facility]. Tissue Density: There are scattered areas of fibroglandular density. Findings: Analyzed By CAD. Stable small chronic nodularity in the left breast. Benign-appearing bilateral axillary lymph nodes are redemonstrated. There is no suspicious group of microcalcifications or new suspicious mass in either breast. Overall Assessment: Benign, BI-RAD 2 Management: Screening Mammogram of both breasts in 1 year. . Patient should continue monthly self-breast exams. A clinical breast exam by your physician is recommended on an annual basis. This exam should not preclude additional follow-up of suspicious palpable abnormalities. Note on Bianca scores and lifetime risk: 1. A Bianca score greater than 3% is considered moderate risk. If this is the case, consider specialist referral to assess eligibility for a risk reducing agent. 2. If overall lifetime risk for the development of breast cancer is 20% or higher, the patient may qualify for future screening with alternating mammogram and breast MRI. [facility], , 12/03/2024 8:07 AM. Electronically signed and approved by: Farooq Arnold M.D.
== END | disposition home or self-care (01) ==
LOC: RADMAMWWP 07:16
PROVIDERS: ATTEND Obstetrics & Gynecology
DX: Z12.31 Encounter for screening mammogram for malignant neoplasm of breast (principal); R92.323 Mammographic fibroglandular density, bilateral breasts; N63.20 Unspecified lump in the left breast, unspecified quadrant; Z80.3 Family history of malignant neoplasm of breast; Z92.0 Personal history of contraception
CPT/HCPCS: 77063; 77067